=== PATIENT | female | born 1945 | race Caucasian/White ===

== ENCOUNTER 2024-07-15 07:12 | Day surgery (SDC) | payer MEDICARE ==
[~2024-07-15 07:12] MED LIST: BETADINE 5% OPHTHALMIC 30 ML OP ONE; TRIAMCINOLONE 15 MG/ML INJ INTRAOP ONE; VIGAMOX/BSS 0.15% SYR IO ONE
[2024-07-15 07:57] VITALS: RESP 16
[2024-07-15] MEDS: Sodium Chloride 0.9% 10 ML FLUSH Syringe IJ ONE (08:02)
[2024-07-15] MEDS: TETRACAINE 0.5% STERI-UNIT SOL OP ONE ×2 (08:03→08:27)
[2024-07-15] MEDS: Ak-Dilate OPHTHALMIC*** 1.065 ML, Cyclogyl 1% OPHTH SOL 1.065 ML, GATIFLOXACIN 0.5% OPH... OP ONE (08:04)
[2024-07-15] MEDS ORDERED: Zofran 4 MG/2 ML VIAL IV PRN (09:15)
[2024-07-15] MEDS ORDERED: DIPRIVAN 200 MG/20 ML IV ONE (09:36)
[2024-07-15] MEDS: ACETAZOLAMIDE 250 MG TABLET PO ONE (10:01)
[2024-07-15 10:12] VITALS: BP 149/69; PULSE 59; TEMP 97.4; O2SAT 97
== END 2024-07-15 10:22 | disposition home or self-care (01) ==
LOC: SDC 07:12
PROVIDERS: ATTEND Ophthalmology
DX: H25.811 Combined forms of age-related cataract, right eye (principal)
CPT/HCPCS: C1780; J2704; A9270-GY

== ENCOUNTER 2024-08-19 06:57 | Day surgery (SDC) | payer MEDICARE ==
[2024-08-19] MEDS ORDERED: Sodium Chloride 0.9% 10 ML FLUSH Syringe IJ ONE (07:00)
[2024-08-19] MEDS: TETRACAINE 0.5% STERI-UNIT SOL OP ONE ×2 (07:52→08:18)
[2024-08-19] MEDS: Ak-Dilate OPHTHALMIC*** 1.065 ML, Cyclogyl 1% OPHTH SOL 1.065 ML, GATIFLOXACIN 0.5% OPH... OP ONE (07:53)
[2024-08-19] MEDS ORDERED: Epinephrine Preservative Free 1 MG/ML IJ ONE (09:00)
[2024-08-19] MEDS ORDERED: BETADINE 5% OPHTHALMIC 30 ML OP ONE (09:00)
[2024-08-19] MEDS ORDERED: VIGAMOX/BSS 0.15% SYR IO ONE (09:00)
[2024-08-19] MEDS ORDERED: TRIAMCINOLONE 15 MG/ML INJ INTRAOP ONE (09:00)
[2024-08-19] MEDS ORDERED: Zofran 4 MG/2 ML VIAL IV PRN (09:00)
[2024-08-19] MEDS ORDERED: DIPRIVAN 200 MG/20 ML IV ONE (09:31)
[2024-08-19 10:21] VITALS: RESP 16; O2SAT 97
[2024-08-19] MEDS: ACETAZOLAMIDE 250 MG TABLET PO ONE (10:22)
[2024-08-19 10:31] VITALS: BP 150/66; PULSE 45; TEMP 96.5
[2024-08-19] MEDS ORDERED: Sodium Chloride 0.9% 250 ML 500 ML IV ONE (10:33)
== END 2024-08-19 10:40 | disposition home or self-care (01) ==
LOC: SDC 06:57
PROVIDERS: ATTEND Ophthalmology
DX: H25.812 Combined forms of age-related cataract, left eye (principal)
CPT/HCPCS: 99100; C1780; J0171; J2704; A9270-GY